=== PATIENT | male | born 1950 | race Caucasian/White ===

== ENCOUNTER 2020-07-27 10:35 | Emergency (ER) | payer OTHER | END 2020-07-27 12:55 | disposition home or self-care (01) | LOC: JVIRT 10:35 | DX: Z20.822 Contact with and (suspected) exposure to COVID-19 (principal) | CPT/HCPCS: C9803; Q3014-GT; U0003 ==

== ENCOUNTER 2021-11-12 20:28 | Emergency (ER) | payer OTHER ==
[2021-11-12 20:43] VITALS: BP 151/86; PULSE 69; TEMP 97.6; BMI 31.1
== END 2021-11-12 21:32 | disposition home or self-care (01) ==
LOC: FER 20:28
DX: R04.0 Epistaxis (principal)
CPT/HCPCS: 99282-25

== ENCOUNTER 2023-05-12 15:01 | Emergency (ER) | payer OTHER ==
[2023-05-12] MEDS ORDERED: methylPREDNISolone NA SUCC 125 MG/2 ML VIAL ONE (15:10)
[2023-05-12] MEDS ORDERED: methylPREDNISolone NA SUCC 125 MG/2 ML VIAL IVPUSH ONE (15:14)
[2023-05-12] MEDS ORDERED: EPINEPHrine 1:1,000 0.3 MG/0.3 ML SYR IM ONE ×2 (15:15→15:19)
[2023-05-12] MEDS ORDERED: FAMOTIDINE 20 MG/50 ML IVPB 20 MG/50 ML MG IVPB ONE (15:15)
[2023-05-12] MEDS ORDERED: EPINEPHrine/PF 1 MG/1 ML (1:1,000) AMPULE ONE ×2 (15:18→15:50)
[2023-05-12 15:27] VITALS: RESP 18; BMI 28.1
[2023-05-12] MEDS ORDERED: EPINEPHrine 1:1,000 1,000 MCG in SODIUM CHLORIDE 249 ML IVPB SCH (15:30)
[2023-05-12 15:54] LABS: HEMATOCRIT 48.8 % (35.4-49); HEMOGLOBIN 16.2 G/dL (11.7-16.9); MCH 28.1 pg (25.7-33.7); MCHC 33.1 g/dl (32.0-35.9); MEAN CELL VOLUME 84.8 fl (80-96); MEAN PLT VOLUME 8.6 fl (7.5-11.1); PLATELET COUNT 187.5 10^3/uL (134-434); RBC 5.75 10^6/uL (4.00-5.60); RDW 14.3 % (11.9-15.9); WHITE BLOOD COUNT 6.9 10^3/uL (4.0-10.8)
[2023-05-12 16:06] LABS: ALBUMIN 4.3 g/dl (3.4-5.0); BILIRUBIN,TOTAL 0.5 mg/dl (0.2-1); CALCIUM 9.1 mg/dl (8.5-10.1); CREATININE 0.8 mg/dl (0.6-1.3); SGOT/AST 29.516 U/L (15-37); SGPT/ALT 13.546 U/L (7-52); TOT PROT 7.2 g/dl (6.4-8.2)
[2023-05-12 16:16] LABS: POTASSIUM 5.5 mmol/L (3.5-5.1)
[2023-05-12 16:21] LABS: INR 1.17 (0.83-1.09); PROTHROMBIN TIME (PATIENT) 13.6 SEC (9.7-13.0)
[2023-05-12 16:24] VITALS: BP 161/68; PULSE 94; TEMP 98.8
[2023-05-12 16:26] LABS: PLATELET ESTIMATE ADEQUATE
== END 2023-05-12 16:56 | disposition short-term general hospital (02) ==
LOC: FER 15:01
PROC: 3E033GC Introduction of Other Therapeutic Substance into Peripheral Vein, Percutaneous Approach (ICD-10-PCS; principal; 2023-05-12)
PROC: 3E033GC Introduction of Other Therapeutic Substance into Peripheral Vein, Percutaneous Approach (ICD-10-PCS; 2023-05-12)
PROC: 3E033GC Introduction of Other Therapeutic Substance into Peripheral Vein, Percutaneous Approach (ICD-10-PCS; 2023-05-12)
PROC: 3E033GC Introduction of Other Therapeutic Substance into Peripheral Vein, Percutaneous Approach (ICD-10-PCS; 2023-05-12)
PROC: 3E023GC Introduction of Other Therapeutic Substance into Muscle, Percutaneous Approach (ICD-10-PCS; 2023-05-12)
DX: R22.0 Localized swelling, mass and lump, head (principal); T78.3XXA Angioneurotic edema, initial encounter; R21 Rash and other nonspecific skin eruption; T78.2XXA Anaphylactic shock, unspecified, initial encounter; L29.9 Pruritus, unspecified; L50.9 Urticaria, unspecified; R07.0 Pain in throat; K14.8 Other diseases of tongue; Z20.822 Contact with and (suspected) exposure to COVID-19
CPT/HCPCS: 0241U-QW; 36415; 71045-TC-FY; 80053; 85027; 85610; 93005; 99291; 99292; J0171

== ENCOUNTER 2024-02-19 08:31 | Emergency (ER) | payer OTHER ==
[2024-02-19 08:56] VITALS: BP 149/77; PULSE 53; RESP 16; TEMP 98.6; BMI 27.0
[2024-02-19 09:38] LABS: HEMATOCRIT 39.9 % (35.4-49); MCHC 32.6 g/dl (32.0-35.9); MEAN CELL VOLUME 85.8 fl (80-96); MEAN PLT VOLUME 8.5 fl (7.5-11.1); PLATELET COUNT 136.4 10^3/uL (134-434); RBC 4.65 10^6/uL (4.00-5.60); RDW 14.5 % (11.9-15.9); WHITE BLOOD COUNT 5.2 10^3/uL (4.0-10.8)
[2024-02-19 09:44] LABS: PLATELET ESTIMATE ADEQUATE
[2024-02-19 09:48] LABS: ALBUMIN 4.1 g/dl (3.4-5.0); BILIRUBIN,TOTAL 0.6 mg/dl (0.2-1); CREATININE 0.9 mg/dl (0.6-1.3); POTASSIUM 4.5 mmol/L (3.5-5.1); TOT PROT 6.4 g/dl (6.4-8.2)
[2024-02-19 11:20] LABS: N-TERMINAL BNP 521.2 pg/ml (5-450)
== END 2024-02-19 13:17 | disposition home or self-care (01) ==
LOC: FER 08:31
DX: R06.02 Shortness of breath (principal); Z20.822 Contact with and (suspected) exposure to COVID-19
CPT/HCPCS: 0241U-QW; 36415; 71046-TC-FY; 80053; 83880; 84484; 85025; 93005; 99285-25